=== PATIENT | female | born 1995 | race Caucasian/White ===

== ENCOUNTER 2022-02-15 23:25 | Inpatient (IN) | payer BC, OTHER ==
[2022-02-15] MEDS ORDERED: Ondansetron PF 4 MG/2 ML Vial ONE (23:45)
[2022-02-15] MEDS ORDERED: Morphine 4 MG/ML VIAL ONE (23:45)
[2022-02-15 23:56] LABS: Bilirubin Negative (Negative); Blood, Urine 2+ (Negative); Clarity Clear (Clear); Glucose, Urine (Dipstick) Normal (Negative); Ketone, Urine Trace mg/dL (Negative); Leukocyte 75 Leu/uL (Negative); Mucous/LPF 4+ LPF (<2+); Nitrite Negative (Negative); Protein, Urine (Dipstick) 20 mg/dL (Neg-Trace); RBC/HPF 0-3 HPF (0-3); Specific Gravity, Urine 1.031 (1.002-1.036); Urobilinogen Normal mg/dL (Less than 2); pH, Urine 5.5 (5.0-9.0)
[2022-02-15 23:57] LABS: Bacteria/HPF 1+ HPF (None Seen)
[2022-02-15 23:59] LABS: #Basophils 0.1 thou/uL (0.0-0.2); #Eosinphils 0.2 thou/uL (0.0-0.7); #Monocytes 1.1 thou/uL (0.11-0.59); %Basophils 0.3 % (0.0-1.0); %Eosinophils 1.3 % (0.0-10.0); %Lymphocytes 19.5 % (21.0-51.0); %Monocytes 7.1 % (0.0-10.0); %Neutrophils 71.8 % (42.0-75.0); Hemoglobin 14.9 g/dL (12.0-16.0); Mean Corpuscular HGB CONC 32.7 g/dL (32.0-36.0); Mean Corpuscular Volume 88.6 fl (78.0-98.0); Mean Platelet Volume 7.3 fL (7.4-10.4); Platelet Count 336 10x3/uL (130-400); RBC Distribution Width 12.2 % (11.5-14.5); Red Blood Cell (RBC) Count 5.15 mill/uL (4.20-5.40); White Blood Cell (WBC) Count 15.3 10x3/uL (4.8-10.8)
[2022-02-16 00:16] LABS: Pregnancy Test - Urine (BHCG) Negative (Negative); Pregu Control Background? CLEAR/WHITE (CLR/WHITE); Pregu Control Bar Appear? YES (CONTROL BAR); Specific Gravity 1.031 (1.002-1.036)
[2022-02-16 00:21] LABS: ALT (SGPT) 19 U/L (8-55); AST (SGOT) 18 U/L (5-34); Albumin 4.3 g/dL (3.5-5.0); Alkaline Phosphatase 69 U/L (40-110); Anion Gap 13 mmol/L (10-20); BUN (Urea Nitrogen) 11 mg/dL (7.0-18.7); Bilirubin, Total 0.6 mg/dL (0.2-1.2); Calc. Creatinine Clearance 0 mL/min (70-130); Calcium 9.8 mg/dL (7.8-10.44); Carbon Dioxide 27 mmol/L (22-29); Chloride 104 mmol/L (98-107); Estimated GFR 104; Glucose 104 mg/dL (70-105); Lipase 18 U/L (8-78); Protein, Total 7.3 g/dL (6.0-8.3); Sodium 140 mmol/L (136-145)
[2022-02-16] MEDS ORDERED: Piperacillin/Tazobactam 4.5 GM VIAL ONE (01:19)
[2022-02-16] MEDS ORDERED: Morphine 4 MG/ML VIAL SLOW IVP PRN ×2 (02:49→06:50)
[2022-02-16] MEDS ORDERED: Ondansetron PF 4 MG/2 ML Vial IVP PRN ×2 (03:00→06:36)
[2022-02-16] MEDS ORDERED: Ondansetron ODT 4 MG TAB SL PRN (03:00)
[2022-02-16] MEDS ORDERED: Sodium Chloride 0.9% 1,000 ML IV SCH (03:00)
[2022-02-16] MEDS ORDERED: Acetaminophen 325 MG TAB PO PRN (03:00)
[2022-02-16 06:03] VITALS: BMI 26.4
[2022-02-16] MEDS ORDERED: TETANUS, DIPHTHERIA TOX,ADULT (TDVAX) 0.5 ML VIAL IM ONE (06:36)
[2022-02-16] MEDS ORDERED: Dextrose 5% in Water 1,000 ML IV PRN (06:36)
[2022-02-16] MEDS ORDERED: Dextrose 50% Abboject 50 ML SYRINGE SLOW IVP PRN (06:36)
[2022-02-16 08:14] LABS: SARS-CoV-2 NAA Rapid Test Not Detected (NotDetected)
[2022-02-16] MEDS: Sodium Chloride 0.9% 1,000 ML IV SCH ×2 (12:45→17:36)
[2022-02-16] MEDS ORDERED: Bupivacaine HCl 0.5%/Epinephrine 1:200,000/PF 30 ml Vial ONE (14:21)
[2022-02-16] MEDS ORDERED: fentaNYL PF 100 MCG/2 ML SYRINGE ONE (14:28)
[2022-02-16] MEDS ORDERED: Sodium Chloride 0.9% 100 ML ONE (14:42)
[2022-02-16] MEDS ORDERED: Piperacillin/Tazobactam 3.375 GM VIAL ONE (14:42)
[2022-02-16] MEDS ORDERED: Midazolam HCl 2 mg/2 ml Vial ONE (14:45)
[2022-02-16] MEDS ORDERED: PROPOFOL 200 MG/20 ML VIAL ONE (14:56)
[2022-02-16] MEDS ORDERED: NEOSTIGMINE 3 MG/3 ML SYR 3 MG/3 ML SYRINGE ONE (14:56)
[2022-02-16] MEDS ORDERED: Glycopyrrolate 0.2 MG/ML 5 ML SYRINGE ONE (14:56)
[2022-02-16] MEDS ORDERED: PHENYLEPHRINE-NS 100 MCG/ML 10 ML SYRINGE ONE (14:56)
[2022-02-16] MEDS ORDERED: Ondansetron PF 4 MG/2 ML Vial ONE (14:56)
[2022-02-16] MEDS ORDERED: Rocuronium Bromide 10 MG/ML (10ML VIAL) ONE (14:56)
[2022-02-16] MEDS ORDERED: Dexamethasone 20 MG/5 ML VIAL ONE (14:56)
[2022-02-16] MEDS ORDERED: Promethazine HCl 25 MG/ML VIAL IVPB PRN (16:09)
[2022-02-16] MEDS ORDERED: PACU-Morphine 4MG/ML VIAL SLOW IVP PRN (16:09)
[2022-02-16] MEDS ORDERED: Ondansetron HCl/PF 4 MG/2 ML Vial IVP PRN (16:09)
[2022-02-16] MEDS ORDERED: Promethazine HCl 25 MG/ML VIAL IM PRN (16:09)
[2022-02-16] MEDS ORDERED: Meperidine HCl/PF 25 MG/ML VIAL ONE (16:09)
[2022-02-16] MEDS ORDERED: Meperidine HCl/PF 25 MG/ML VIAL SLOW IVP PRN (16:09)
[2022-02-16] MEDS ORDERED: FENTANYL 50 MCG/ML 1 ML VIAL ONE ×4 (16:13→16:46)
[2022-02-16] MEDS ORDERED: HYDROcodone/Acetaminophen 5/325 mg Tablet PO PRN (17:22)
[2022-02-16] MEDS: Morphine 4 MG/ML VIAL SLOW IVP PRN (19:56)
[2022-02-16] MEDS: HYDROcodone/Acetaminophen 5/325 mg Tablet PO PRN (21:31)
[2022-02-17] MEDS: Morphine 4 MG/ML VIAL SLOW IVP PRN (00:48)
[2022-02-17] MEDS: Sodium Chloride 0.9% 1,000 ML IV SCH (00:56)
[2022-02-17] MEDS: HYDROcodone/Acetaminophen 5/325 mg Tablet PO PRN ×2 (04:33→08:46)
[2022-02-17 08:42] VITALS: BP 115/74; TEMP 97.9
[2022-02-19] MEDS ORDERED: FLU VACC QS2022-23(6MOS UP)/PF 60 MCG/0.5 ML SYRINGE IM ONE (09:00)
== END 2022-02-17 10:25 | disposition home or self-care (01) | DRG 418 ==
LOC: ERS 23:25 → SURG A 02-16 01:16 → OBSVTOIN 02-16 06:36
PROVIDERS: ADMIT Surgery; ATTEND Surgery
PROC: 0FT44ZZ Resection of Gallbladder, Percutaneous Endoscopic Approach (ICD-10-PCS; principal; 2022-02-16)
DX: K81.0 Acute cholecystitis (principal); Q79.60 Ehlers-Danlos syndrome, unspecified; Z20.822 Contact with and (suspected) exposure to COVID-19; Z88.1 Allergy status to other antibiotic agents; J45.909 Unspecified asthma, uncomplicated; E53.8 Deficiency of other specified B group vitamins; F90.9 Attention-deficit hyperactivity disorder, unspecified type; Z98.1 Arthrodesis status
CPT/HCPCS: 76705; 80053; 81003; 81015; 81025; 83690; 85025; 88304; 96376; C1889; G0378; J1100; J2175; J2250; J2270; J2405; J2543; J2704; J3010; J3490; J7050; U0002